=== PATIENT | female | born 1985 | race Caucasian/White ===

== ENCOUNTER 2016-09-06 23:50 | Emergency (ER) | payer SELFPAY ==
[~2016-09-06] VITALS: Ht 157.5 cm; Wt 53.5 kg
[2016-09-07] MEDS ORDERED: TDAP DIPH,PERTUSS,TET VAC/PF 0.5 ML DISP.SYRIN IM ONE ×2 (00:15→00:32)
[2016-09-07] MEDS ORDERED: SODIUM BICARBONATE 4.2 % (NEUT) 5 ML VIAL TP ONE (00:15)
[2016-09-07] MEDS ORDERED: CEFAZOLIN 1 G VIAL IM ONE (00:15)
[2016-09-07] MEDS ORDERED: LIDOCAINE HCL 1% 20 ML VIAL TP ONE (00:15)
[2016-09-07] MEDS ORDERED: CEFAZOLIN 1 G VIAL ONE (00:31)
[2016-09-07 00:37] LABS: *URINE HCG, QUAL NEGATIVE (NEGATIVE)
[2016-09-07] MEDS ORDERED: AZITHROMYCIN 500 MG VIAL IV ONE (00:44)
[2016-09-07] MEDS ORDERED: AZITHROMYCIN 250 MG TABLET PO ONE (00:45)
[2016-09-07] MEDS ORDERED: AZITHROMYCIN 250 MG TABLET ONE (00:47)
--- NOTE | 2016-09-07 00:48 | NUR ---
Pharmacy Note: Patient refused Ancef due to fear of reaction (a friend had a bad reaction).
--- NOTE | 2016-09-07 01:35 | NUR ---
Patient discharged to home in stable conditon. Written and verbal after care instructions given. Patient verbalizes understanding of instructions.
== END 2016-09-07 01:38 | disposition home or self-care (01) ==
LOC: ER 23:53
DX: S61.412A Laceration without foreign body of left hand, initial encounter (principal); F10.20 Alcohol dependence, uncomplicated; F17.200 Nicotine dependence, unspecified, uncomplicated; Z71.6 Tobacco abuse counseling; Z88.8 Allergy status to other drugs, medicaments and biological substances; W45.8XXA Other foreign body or object entering through skin, initial encounter; Y93.89 Activity, other specified; Y99.8 Other external cause status; Y92.89 Other specified places as the place of occurrence of the external cause
CPT/HCPCS: 12031; 73130; 84703; 90471; 90715; 99284; 99406; A4217; A4663; J0456; J0690; J3490 ×2; Q0144

== ENCOUNTER 2017-02-09 07:06 | Emergency (ER) | payer SELFPAY ==
[~2017-02-09] VITALS: Ht 157.5 cm; Wt 54.4 kg
--- NOTE | 2017-02-09 07:25 | NUR ---
urine sent to lab.
[2017-02-09 07:32] LABS: *URINE HCG, QUAL NEGATIVE (NEGATIVE)
--- NOTE | 2017-02-09 08:11 | NUR ---
mse comopleted. pt d/c'd home, aci given. pt ambuklated w/o diff/took all belongings.
[2017-02-09 08:12] VITALS: BP 110/63
== END 2017-02-09 08:13 | disposition home or self-care (01) ==
LOC: ER 07:08
DX: S06.0X9A Concussion with loss of consciousness of unspecified duration, initial encounter (principal); Y04.2XXA Assault by strike against or bumped into by another person, initial encounter; Y93.89 Activity, other specified; Y92.89 Other specified places as the place of occurrence of the external cause; Y99.8 Other external cause status
CPT/HCPCS: 70450; 84703; A4663

== ENCOUNTER 2017-06-15 05:00 | Emergency (ER) | payer MEDICAID ==
[~2017-06-15] VITALS: Ht 157.5 cm; Wt 52.2 kg
[2017-06-15 05:51] LABS: *URINE HCG, QUAL NEGATIVE (NEGATIVE)
--- NOTE | 2017-06-15 06:15 | NUR ---
Pt stable for discharge per MD. Pt given ACI. PT verbalized understanding of dc instructions. Pt ambulated out of ER with steady gait.
[2017-06-15 07:39] VITALS: BP 109/71
== END 2017-06-15 06:15 | disposition home or self-care (01) ==
LOC: ER 05:03
DX: J40 Bronchitis, not specified as acute or chronic (principal); F17.200 Nicotine dependence, unspecified, uncomplicated
CPT/HCPCS: 71045; 84703; 87400; A4663